=== PATIENT | male | born 1985 | race American Indian/Alaskan Native ===

== ENCOUNTER 2017-04-05 23:45 | Emergency (ER) | payer OTHER ==
[2017-04-05] MEDS ORDERED: Diphtheria,Pertussis(Acell),Tetanus Vaccine 0.5 ML SDV IM ONE (23:51)
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
[2017-04-06] MEDS ORDERED: Lidocaine 1% 30 ML SDV INJECT ONE (00:06)
[2017-04-06] MEDS ORDERED: Bacitracin Oint 1 GM U/D Packet TOP ONE (00:09)
[2017-04-06] MEDS ORDERED: Acetaminophen/HYDROcodone 325-10 MG Tab PO ONE (00:51)
[2017-04-06] MEDS ORDERED: ceFAZolin 1 GM Vial IM ONE (00:51)
== END 2017-04-06 01:22 | disposition home or self-care (01) ==
LOC: DL.ED 23:45
DX: S01.311A Laceration without foreign body of right ear, initial encounter (principal); S00.03XA Contusion of scalp, initial encounter; Z23 Encounter for immunization; Y04.0XXA Assault by unarmed brawl or fight, initial encounter
CPT/HCPCS: 12013; 36415; 70450; 70486; 72125; 85025; 90471; 90715; 96372; 99284; A9270; J0690

== ENCOUNTER 2019-06-17 21:00 | Emergency (ER) | payer OTHER ==
[2019-06-17] MEDS ORDERED: Lidocaine 1% 30 ML SDV INJECT ONE (21:18)
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
[2019-06-17] MEDS ORDERED: Ibuprofen 600 MG Tab PO ONE (22:53)
== END 2019-06-17 23:10 | disposition home or self-care (01) ==
LOC: DL.ED 21:00
DX: S06.0X1A Concussion with loss of consciousness of 30 minutes or less, initial encounter (principal); S01.81XA Laceration without foreign body of other part of head, initial encounter; S01.412A Laceration without foreign body of left cheek and temporomandibular area, initial encounter; S20.211A Contusion of right front wall of thorax, initial encounter; S00.83XA Contusion of other part of head, initial encounter; W22.8XXA Striking against or struck by other objects, initial encounter; Y92.89 Other specified places as the place of occurrence of the external cause
CPT/HCPCS: 12013; 70450; 70486; 71101; 99283; 99284; A9270; J2001